=== PATIENT | female | born 1985 | race Caucasian/White ===

== ENCOUNTER 2018-05-14 13:42 | Emergency (ER) | payer BC, OTHER ==
[2018-05-14 13:49] VITALS: BP 109/79; PULSE 89; TEMP 98.6; BMI 23.3
[2018-05-14] MEDS ORDERED: METOCLOPRAMIDE HCL INJECTION 10 MG/2 ML VIAL IVPUSH ONE (13:53)
[2018-05-14] MEDS ORDERED: SODIUM CHLORIDE 1,000 ML IV STA (13:53)
--- NOTE | 2018-05-14 13:54 | PDOC ---
Attending Attestation - Resident Resident Name: Nomi Marino - ED Attending Attestation I have performed the following: I have examined & evaluated the patient, The case was reviewed & discussed with the resident, I agree w/resident's findings & plan, Exceptions are as noted - HPI HPI: 05/14/18 15:15 Ms Polk is a 32 yo F who presents to the ER with a complaint of headache Pain present fo rth epast 2 weeks Frontal EDDY, intermittent, waxing and waning, gradual onset Low grade fever No vomiting Tried tylenol at home this morning with no effect. - Physicial Exam PE: 05/14/18 15:17 GENERAL: The patient is in no acute distress. EYES: PERRLA, EOMI, sclera anicteric, conjunctiva clear. ENT: Ears normal, nares patent, oropharynx clear without exudates. Moist mucous membranes. NECK: Normal range of motion, supple without lymphadenopathy, JVD, or masses. LUNGS: Breath sounds equal, clear to auscultation bilaterally. No wheezes, and no crackles. HEART:Regular rate and rhythm, normal S1 and S2 without murmur, rub or gallop. ABDOMEN: Soft, nontender, normoactive bowel sounds. No guarding, no rebound. No masses palpable. EXTREMITIES: Normal range of motion, no edema. No clubbing or cyanosis. No erythema, or tenderness. NEUROLOGICAL: Cranial nerves II through XII grossly intact. Normal speech. No focal neurological deficits. MUSCULOSKELETAL: Back non-tender to palpation, no CVA tenderness SKIN: Warm, Dry, normal turgor, no rashes or lesions noted. - Medical Decision Making 05/14/18 15:18 32 yo F with headache Will treat EDDY Will re assess 05/15/18 10:23 EDDY improved still present Pt asked to return to the ER for persistent or worsening symptoms
[2018-05-14] MEDS ORDERED: KETOROLAC TROMETHAMINE 15 MG/ML VIAL IVPUSH ONE (14:26)
[2018-05-14 14:29] LABS: HEMATOCRIT 33.9 % (32.4-45.2); HEMOGLOBIN 11.1 GM/dl (10.7-15.3); MCHC 32.8 g/dl (32.0-36.0); MEAN CELL VOLUME 85.3 fl (80-96); MEAN PLT VOLUME 9.4 fl (7.5-11.1); PLATELET COUNT 190 K/MM3 (134-434); RBC 3.97 M/mm3 (3.60-5.2); RDW 15.1 % (11.6-15.6); WHITE BLOOD COUNT 5.3 K/mm3 (4.0-10.8)
[2018-05-14 14:41] LABS: ALBUMIN 3.3 g/dl (3.5-5.0); ALK PHOS 49 U/L (32-92); ANION GAP 8 MMOL/L (8-16); BILIRUBIN,TOTAL 1.1 mg/dl (0.2-1.0); BLOOD UREA NITROGEN 10 mg/dl (7-18); CALCIUM 8.2 mg/dl (8.4-10.2); CHLORIDE 104 mmol/L (98-107); CO2 26 mmol/L (22-28); CREATININE 0.7 mg/dl (0.6-1.3); GLUCOSE,RANDOM 92 mg/dl (74-106); POTASSIUM 4.2 mmol/L (3.5-5.1); SGOT/AST 95 U/L (10-42); SGPT/ALT 80 U/L (10-40); SODIUM 138 mmol/L (136-145); TOT PROT 6.5 g/dl (6.4-8.3)
[2018-05-14] MEDS ORDERED: KETOROLAC TROMETHAMINE 15 MG/ML VIAL ONE (14:49)
--- NOTE | 2018-05-14 14:57 | PDOC ---
History of Present Illness - General Chief Complaint: Headache Stated Complaint: HEADACHE Time Seen by Provider: 05/14/18 13:43 History Source: Patient Exam Limitations: No Limitations - History of Present Illness Initial Comments: 05/14/18 14:49 Patient is a 32F with history of recently diagnosed with EBV here today complaining of headache for the past two weeks. She describes a waxing and waning headache that starts in her forehead and radiates to her neck and arms. Onset was insidious. Denies neck stiffness, endorses temperatures at 99.0-99.5. Denies chills, vomiting. Endorses nausea. Endorses light and sound sensitivity. Tried taking tylenol at home this morning to no effect. Denies focal weaknesses. Past History - Past Medical History Allergies/Adverse Reactions: Allergies Allergy/AdvReac Type Severity Reaction Status Date / Time No Known Allergies Allergy Verified 05/04/13 01:25 Home Medications: Ambulatory Orders Acetaminophen [Tylenol -] 500 mg PO ASDIR 05/14/18 Asthma: No Cancer: No Cardiac Disorders: No COPD: No Diabetes: No HTN: No Seizures: No Thyroid Disease: No Other medical history: EIPSTEN-PIEDRA VIRUS - Suicide/Smoking/Psychosocial Hx Smoking History: Never smoked Have you smoked in the past 12 months: No Information on smoking cessation initiated: No Hx Alcohol Use: No Drug/Substance Use Hx: No Hx Substance Use Treatment: No Review of Systems - Review of Systems Comments:: 05/14/18 14:57 GENERAL/CONSTITUTIONAL: No fever or chills. No weakness. HEAD, EYES, EARS, NOSE AND THROAT: No change in vision. No ear pain or discharge. No sore throat. CARDIOVASCULAR: No chest pain or shortness of breath RESPIRATORY: No cough, wheezing, or hemoptysis. GASTROINTESTINAL: No nausea, vomiting, diarrhea or constipation. GENITOURINARY: No dysuria, frequency, or change in urination. MUSCULOSKELETAL: No joint or muscle swelling or pain. No neck or back pain. SKIN: No rash NEUROLOGIC:+headache, no vertigo, loss of consciousness, or change in strength/ sensation. ENDOCRINE: No increased thirst. No abnormal weight change HEMATOLOGIC/LYMPHATIC: No anemia, easy bleeding, or history of blood clots. ALLERGIC/IMMUNOLOGIC: No hives or skin allergy. *Physical Exam - Vital Signs Last Vital Signs Temp Pulse Resp BP Pulse Ox 98.6 F 89 18 109/79 100 05/14/18 13:42 05/14/18 13:42 05/14/18 13:42 05/14/18 13:42 05/14/18 13:42 - Physical Exam Comments: 05/14/18 14:57 GENERAL: Awake, alert, and fully oriented, in no acute distress HEAD: No signs of trauma, normocephalic, atraumatic EYES: PERRLA, EOMI, sclera anicteric, conjunctiva clear ENT: Auricles normal inspection, hearing grossly normal, nares patent, oropharynx clear without exudates. Moist mucosa NECK: Normal ROM, supple, no lymphadenopathy, JVD, or masses LUNGS: No distress, speaks full sentences, clear to auscultation bilaterally HEART: Regular rate and rhythm, normal S1 and S2, no murmurs, rubs or gallops, peripheral pulses normal and equal bilaterally. ABDOMEN: Soft, nontender, normoactive bowel sounds. No guarding, no rebound. No masses EXTREMITIES: Normal inspection, Normal range of motion, no edema. No clubbing or cyanosis. NEUROLOGICAL: Cranial nerves II through XII grossly intact. Normal speech, normal gait, no focal sensorimotor deficits, normal cerebellar function SKIN: Warm, Dry, normal turgor, no rashes or lesions noted. ED Treatment Course - LABORATORY CBC & Chemistry Diagram: 05/14/18 14:10 05/14/18 14:10 - ADDITIONAL ORDERS Additional order review: Laboratory Results 05/14/18 14:10 Urine HCG, Qual Negative 05/14/18 14:10 RBC 3.97 MCV 85.3 MCHC 32.8 RDW 15.1 MPV 9.4 - Medications Given in the ED: ED Medications Discontinued Medications Generic Name Dose Route Start Last Admin Trade Name Freq PRN Reason Stop Dose Admin Metoclopramide HCl 10 mg 05/14/18 13:53 05/14/18 14:30 Reglan Injection - IVPUSH 05/14/18 13:54 10 mg ONCE ONE Administration Medical Decision Making - Medical Decision Making 05/14/18 14:57 Patient is 32F with history of recently being diagnosed with EBV here today with headache. Vital signs normal and stable. No meningeal signs present, afebrile, do not believe that patient has meningitis. Sinuses nontender, do not believe patient has sinusitis. DDx includes, but is not limited to: tension headache, migraine headache. Will treat with fluids and reglan. Will work up with cbc, cmp, upreg. If preg negative, will give toradol. 05/14/18 16:06 CBC normal. CMP shows mild elevation of liver enzymes, patient states that she had this at her urgent care visit. Will f/u with PCP. Upreg negative, toradol given Patient reports improvement, asking to go home. Will discharge with instructions to increase fluid intake and take 600mg motrin TID for the next 2 days, then PRN. Return precautions given, patient expressed understanding. Will discharge home. *DC/Admit/Observation/Transfer Diagnosis at time of Disposition: Headache, Elevated liver enzymes - Discharge Dispostion Disposition: HOME Condition at time of disposition: Good Decision to Admit order: No - Referrals - Patient Instructions Printed Discharge Instructions: DI for Headache Additional Instructions: Please return to the ED if you have any new, worsening or concerning symptoms, especially fever, increased pain and vomiting. Please follow up with your primary care doctor this week. Your liver enzymes were found to be elevated today. Please see your primary care doctor for further workup. For your headache, please increase your fluid intake and take motrin 600mg three times a day for the next two days, then as needed. - Post Discharge Activity Forms/Work/School Notes: Back to Work
== END 2018-05-14 16:30 | disposition home or self-care (01) ==
LOC: FER 13:42
PROC: 3E0333Z Introduction of Anti-inflammatory into Peripheral Vein, Percutaneous Approach (ICD-10-PCS; principal; 2018-05-14)
PROC: 3E033GC Introduction of Other Therapeutic Substance into Peripheral Vein, Percutaneous Approach (ICD-10-PCS; 2018-05-14)
PROC: 3E0337Z Introduction of Electrolytic and Water Balance Substance into Peripheral Vein, Percutaneous Approach (ICD-10-PCS; 2018-05-14)
DX: R51 Headache (principal); R94.5 Abnormal results of liver function studies; B27.00 Gammaherpesviral mononucleosis without complication
CPT/HCPCS: 36415; 80053; 84703; 85027; 99283-25; J7030

== ENCOUNTER 2021-04-23 10:16 | Inpatient (IN) | payer BC, OTHER ==
[2021-04-23] MEDS ORDERED: ELECTROLYTE-148 SOLN 1,000 ML IV SCH (10:45)
[2021-04-23 11:01] LABS: BASO % 0.5 % (0-2.0); EOS % 0.3 % (0-4.5); HEMOGLOBIN 9.2 GM/dL (10.7-15.3); MCH 23.9 pg (25.7-33.7); MEAN CELL VOLUME 72.6 fl (80-96); MEAN PLT VOLUME 8.9 fl (7.5-11.1); NEUT % 80.2 % (42.8-82.8); PLATELET COUNT 227 10^3/uL (134-434); RBC 3.85 M/mm3 (3.60-5.2); WHITE BLOOD COUNT 9.1 K/mm3 (4.0-10.0)
[2021-04-23 11:07] LABS: INR 0.97 (0.83-1.09)
[2021-04-23 11:10] LABS: ACTIVATED PTT 23.6 SECONDS (25.2-36.5)
[2021-04-23 11:13] VITALS: BMI 29.0
[2021-04-23] MEDS ORDERED: AMPICILLIN - 2 GM in SODIUM CHLORIDE 100 ML IVPB ONE (11:15)
[2021-04-23] MEDS ORDERED: AMPICILLIN SODIUM 2 GM VIAL ONE (11:18)
[2021-04-23 11:28] LABS: CALCIUM 8.5 mg/dL (8.5-10.1)
[2021-04-23 11:29] LABS: BLOOD UREA NITROGEN 6.8 mg/dL (7-18)
[2021-04-23 11:32] LABS: CREATININE 0.6 mg/dL (0.55-1.3)
[2021-04-23] MEDS ORDERED: PCA PUMP NR ONE (12:16)
[2021-04-23] MEDS ORDERED: FENTANYL/BUPIVACAINE/NS/PF - PCEA - 50 ML DISP.SYRIN EP ONE ×2 (12:17→16:26)
[2021-04-23] MEDS ORDERED: OXYTOCIN 30 UNITS in 0.9% NS 30 UNIT/500 ML INFUS.BAG IVPB SCH (12:45)
[2021-04-23] MEDS: FENTANYL/BUPIVACAINE/NS/PF - PCEA - 50 ML DISP.SYRIN EP SCH ×2 (12:45→16:27)
[2021-04-23] MEDS ORDERED: NALOXONE HCL 0.4 MG/ML VIAL IVPUSH PRN (12:59)
[2021-04-23] MEDS ORDERED: OXYTOCIN 30 UNITS in 0.9% NS 30 UNIT/500 ML INFUS.BAG IVPB ONE (14:05)
[2021-04-23] MEDS ORDERED: AMPICILLIN - 1 GM in SODIUM CHLORIDE 100 ML IVPB SCH (15:15)
[2021-04-23] MEDS ORDERED: AMPICILLIN SODIUM 1 GM VIAL ONE (15:31)
[2021-04-23] MEDS ORDERED: OXYTOCIN 20 UNITS in 0.9% NS 20 UNIT/1,000 ML INFUS.BAG IV ONE (16:59)
[2021-04-23] MEDS ORDERED: BENZOCAINE 28 GM HEMORRHOIDAL OINTMENT TP PRN (17:18)
[2021-04-23] MEDS ORDERED: BENZOCAINE 20% 57 GM BOTTLE TP PRN (17:18)
[2021-04-23] MEDS ORDERED: WITCH HAZEL 50% (TUCKS) 40 PAD/JAR PAD TP PRN (17:18)
[2021-04-23] MEDS ORDERED: BISACODYL 10 MG SUPP.RECT RC PRN (17:18)
[2021-04-23] MEDS ORDERED: METHYLERGONOVINE MALEATE 0.2 MG/1 ML AMP IM PRN (17:18)
[2021-04-23] MEDS ORDERED: OXYTOCIN 20 UNITS in 0.9% NS 20 UNIT/1,000 ML INFUS.BAG IV SCH (17:30)
[2021-04-23] MEDS ORDERED: ACETAMINOPHEN 325 MG TABLET (FP) ONE (17:45)
[2021-04-23] MEDS: ACETAMINOPHEN 325 MG TABLET (FP) PO PRN (17:50)
[2021-04-23] MEDS: FERROUS SO4 325 MG TABLET (FP) PO SCH (17:59)
[2021-04-23] MEDS: IBUPROFEN 600 MG TABLET (FP) PO PRN (21:26)
[2021-04-24] MEDS: ACETAMINOPHEN 325 MG TABLET (FP) PO PRN ×3 (03:00→18:49)
[2021-04-24] MEDS: IBUPROFEN 600 MG TABLET (FP) PO PRN ×3 (06:15→18:48)
[2021-04-24] MEDS: PRENATAL VITAMINS W/ FOLIC ACID TABLET (FP) PO SCH (11:20)
[2021-04-24] MEDS: FERROUS SO4 325 MG TABLET (FP) PO SCH ×2 (11:20→18:48)
[2021-04-24 11:51] LABS: BASO % 0.3 % (0-2.0); HEMATOCRIT 24.5 % (32.4-45.2); HEMOGLOBIN 8.1 GM/dL (10.7-15.3); LYMPH % 14.1 % (8-40); MCH 24.3 pg (25.7-33.7); MCHC 33.1 g/dl (32.0-36.0); MEAN CELL VOLUME 73.5 fl (80-96); MEAN PLT VOLUME 9.3 fl (7.5-11.1); MONO % 5.4 % (3.8-10.2); NEUT % 79.2 % (42.8-82.8); PLATELET COUNT 199 10^3/uL (134-434); RBC 3.33 M/mm3 (3.60-5.2); RDW 18.4 % (11.6-15.6); WHITE BLOOD COUNT 9.1 K/mm3 (4.0-10.0)
[2021-04-24] MEDS: FENTANYL/BUPIVACAINE/NS/PF - PCEA - 50 ML DISP.SYRIN EP SCH (15:15)
[2021-04-24] MEDS ORDERED: SENNOSIDES/DOCUSATE COMBO (SENNA PLUS) TABLET (UD) PO PRN (22:00)
[2021-04-25] MEDS: IBUPROFEN 600 MG TABLET (FP) PO PRN (04:33)
[2021-04-25] MEDS: FERROUS SO4 325 MG TABLET (FP) PO SCH (11:11)
[2021-04-25] MEDS: PRENATAL VITAMINS W/ FOLIC ACID TABLET (FP) PO SCH (11:11)
[2021-04-25 13:06] VITALS: BP 113/75; PULSE 87; TEMP 98.1
== END 2021-04-25 11:45 | disposition home or self-care (01) | DRG 807 ==
LOC: JLDR 10:16 → J3W 19:59
PROVIDERS: ADMIT Obstetrics & Gynecology; ATTEND Obstetrics & Gynecology
PROC: 10E0XZZ Delivery of Products of Conception, External Approach (ICD-10-PCS; principal; 2021-04-23)
PROC: 10H073Z Insertion of Monitoring Electrode into Products of Conception, Via Natural or Artificial Opening (ICD-10-PCS; 2021-04-23)
DX: O48.0 Post-term pregnancy (principal); Z37.0 Single live birth; O70.0 First degree perineal laceration during delivery; Z3A.40 40 weeks gestation of pregnancy
CPT/HCPCS: 36415; 59409; 80048; 85025; 85610; 85730; 86780; 86850; 86900; 86901; C9803; U0003; U0005